=== PATIENT | male | born 1955 | race Two or more races ===

== ENCOUNTER 2018-12-11 01:01 | Emergency (ER) | payer OTHER ==
[~2018-12-11] VITALS: Ht 177.8 cm; Wt 86.2 kg
--- NOTE | 2018-12-11 01:05 | ED.ADGEN ---
Past History Past Medical History: Hypertension Adult General Chief Complaint Chief Complaint ".. I have this noise in my Rt. ear.. and when it gets bad.. I get dizzy... I took a pill for it once..." HPI HPI Patient is a 63 year old male [place] who presents with hx with ear tinnitus and dizzy x 2 months. Pt. currently in [employer] course at [employer]. Pt. patient's has fullness in right ear. Has history of sounds of wrinkled paper in right ear. Patient does remark that movement of head exacerbate symptoms. Symptoms are not worse with eyes closed. Was seen at the [facility] today and started on allergy meds. Patient does have a history of hypertension. Hx. of prior episodes of this presentation which was treated with a nausea med. Patient does not smoke. No history of TIAs or CVAs. No history of circulation problems. Does have history of mild arthritis. No history of trauma. No history immunosuppression. Normally lives in [place]. Review of Systems Review of Systems Constitutional: Denies fever or chills [] Eyes: Denies change in visual acuity, redness, or eye pain [] HENT: Denies nasal congestion or sore throat []complaints of tinnitus Rt. ear. Respiratory: Denies cough or shortness of breath [] Cardiovascular: No additional information not addressed in HPI [] GI: Denies abdominal pain, nausea, vomiting, bloody stools or diarrhea [] : Denies dysuria or hematuria [] Musculoskeletal: Denies back pain or joint pain [] Integument: Denies rash or skin lesions [] Neurologic: Denies headache, focal weakness or sensory changes [] Endocrine: Denies polyuria or polydipsia [] All other systems were reviewed and found to be within normal limits, except as documented in this note. Family History Family History Non-contributory Current Medications Current Medications Current Medications Medications (Trade) Dose Ordered Sig/Alberto Start Time Stop Time Status Last Admin Dose Admin Meclizine HCl (Antivert) 25 mg 1X STAT 12/11/18 01:30 12/11/18 01:47 DC 12/11/18 01:52 25 MG Prednisone (Prednisone) 60 mg 1X ONCE 12/11/18 01:30 12/11/18 01:47 DC 12/11/18 01:52 60 MG Allergies Allergies Allergies Coded Allergies Type Severity Reaction Last Updated Verified No Known Drug Allergies 4/24/19 No Physical Exam Physical Exam Constitutional:no acute distress, non-toxic appearance. [] HENT: Normocephalic, atraumatic, bilateral external ears normal, oropharynx moist, no oral exudates, nose normal. [ Eyes: PERRLA, EOMI, conjunctiva normal, no discharge. [] Neck: Normal range of motion, no tenderness, supple, no stridor. [] No Bruit. Cardiovascular:Heart rate regular rhythm, no murmur [] Lungs & Thorax: Bilateral breath sounds clear to auscultation [] Abdomen: Bowel sounds normal, soft, no tenderness, no masses, no pulsatile masses. [] Skin: Warm, dry, no erythema, no rash. [] Back: No tenderness, no CVA tenderness. [] Extremities: No tenderness, no cyanosis, no clubbing, ROM intact, no edema. [] Mild arthritic changes. Neurologic: Alert and oriented X 3, normal motor function, normal sensory function, no focal deficits noted. []DTR + 2 brachial and patella. No drift. Business Architect equal. AC> BC. BC lateralizes to Rt. ear. No terminal nystagmus. Pt. ambulatory without problems. Psychologic: Affect anxious, judgement normal, mood normal. [] Current Patient Data Vital Signs Vital Signs Date Time Temp Pulse Resp B/P (MAP) Pulse Ox O2 Delivery O2 Flow Rate FiO2 12/11/18 02:00 79 18 146/99 (115) 99 Room Air 12/11/18 01:05 98.3 EKG EKG [] Radiology/Procedures Radiology/Procedures [] Course & Med Decision Making Course & Med Decision Making Pertinent Labs and Imaging studies reviewed. (See chart for details) If no improvement must see ENT. Trial of meclizine 25 mg up 4 times a day. We will give a course of prednisone 50 mg day for 5 days. Return if any concerns. Must follow-up. Discussed risks of alternative diagnosis and need for followup. [] Final Impression Final Impression 1. Ear Rt. Tinnitus 2 .Hx HTN 3. Hx. Arthritis Aurea Disclaimer Aurea Disclaimer This electronic medical record was generated, in whole or in part, using a voice recognition dictation system. Discharge Summary Visit Information Final Diagnosis Problems Medical Problems: (1) Tinnitus of right ear Status: Acute Brief Hospital Course Allergies Allergies Coded Allergies Type Severity Reaction Last Updated Verified No Known Drug Allergies 12/11/18 No Vital Signs Vital Signs Date Time Temp Pulse Resp B/P (MAP) Pulse Ox O2 Delivery O2 Flow Rate FiO2 12/11/18 02:00 79 18 146/99 (115) 99 Room Air 12/11/18 01:05 98.3 Brief Hospital Course Mr. Scott is a 63 old male who presented with tinnitus Rt. ear. Discharge Information Condition at Discharge: Stable Disposition/Orders: D/C to Home Dischare Medications Current Medications Meclizine HCl (Antivert) 25 mg 1X STAT PO Last administered on 12/11/18at 01:52; Admin Dose 25 MG; Start 12/11/18 at 01:30; Stop 12/11/18 at 01:47; Status DC Prednisone (Prednisone) 60 mg 1X ONCE PO Last administered on 12/11/18at 01:52; Admin Dose 60 MG; Start 12/11/18 at 01:30; Stop 12/11/18 at 01:47; Status DC Active Scripts Active Prednisone 50 Mg Tablet 50 Mg PO DAILY 5 Days Meclizine Hcl 25 Mg Tablet 25 Mg PO QIDPRN PRN Dragon Disclaimer This chart was dictated in whole or in part using Voice Recognition software in a busy, high-work load, and often noisy Emergency Department environment. It may contain unintended and wholly unrecognized errors or omissions. DONNELL JUNIOR MD Dec 11, 2018 01:04
[2018-12-11] MEDS ORDERED: predniSONE 20 MG TABLET PO ONE (01:30)
[2018-12-11] MEDS ORDERED: MECLIZINE 12.5 MG TABLET. PO STA (01:30)
[2018-12-11] MEDS ORDERED: MECL25TA3 PO (01:34)
[2018-12-11] MEDS ORDERED: PRED50TA PO (01:42)
[2018-12-11 02:00] VITALS: BP 146/99
== END 2018-12-11 02:00 | disposition home or self-care (01) ==
LOC: ER 01:01
DX: H93.11 Tinnitus, right ear (principal); R42 Dizziness and giddiness; I10 Essential (primary) hypertension; M19.90 Unspecified osteoarthritis, unspecified site
CPT/HCPCS: 99283; J7512; J8597

== ENCOUNTER 2018-12-18 11:06 | Emergency (ER) | payer OTHER ==
[~2018-12-18] VITALS: Ht 177.8 cm; Wt 100.0 kg
[~2018-12-18 11:06] MED LIST: MECL25TA3 PO; PRED50TA PO
--- NOTE | 2018-12-18 11:27 | PHYS DOC ---
Past History Past Medical History: GERD, Hypertension Past Surgical History: Tonsillectomy Alcohol Use: None Drug Use: None Adult General Chief Complaint Chief Complaint: GI PROBLEM HPI HPI Patient is a 63-year-old male who presents with complaint of a burning sensation in his upper epigastric/lower chest region just behind the xiphoid process. The patient states that symptoms began a couple of days ago after being on prednisone for 5 days. Patient was treated with prednisone for complaint of right ear pain. Patient states that the ear pain has improved some but now he is hearing crackling from his right ear. He states that he was instructed to follow-up with an ENT specialist which she is still waiting to have appointment with. He denies any nausea or vomiting. Patient does indicate that he has a history of reflux and states that he takes Prilosec for that. He denies any shortness of breath. Review of Systems Review of Systems Constitutional: Denies fever or chills [] Respiratory: Denies cough or shortness of breath [] Cardiovascular: No additional information not addressed in HPI [] GI: Positive epigastric burning without nausea, vomiting, bloody stools or diarrhea [] Neurologic: Denies headache, focal weakness or sensory changes [] All other systems were reviewed and found to be within normal limits, except as documented in this note. Allergies Allergies Allergies Coded Allergies Type Severity Reaction Last Updated Verified No Known Drug Allergies 12/11/18 No Physical Exam Physical Exam Constitutional: Well developed, well nourished, no acute distress, non-toxic appearance. [] HENT: Normocephalic, atraumatic, bilateral external ears normal, oropharynx moist, no oral exudates, nose normal. [] Eyes: PERRLA, EOMI, conjunctiva normal, no discharge. [] Neck: Normal range of motion, no tenderness, supple, no stridor. [] Cardiovascular:Heart rate regular rhythm, no murmur [] Lungs & Thorax: Bilateral breath sounds clear to auscultation [] Abdomen: Bowel sounds normal, soft, no tenderness. [] Skin: Warm, dry, no erythema, no rash. [] Extremities: No tenderness, no cyanosis, no clubbing, ROM intact, no edema. [] Neurologic: Alert and oriented X 3, no focal deficits noted. [] Current Patient Data Vital Signs Vital Signs Date Time Temp Pulse Resp B/P (MAP) Pulse Ox O2 Delivery O2 Flow Rate FiO2 12/18/18 11:16 98.2 90 18 99 Room Air EKG EKG [] Radiology/Procedures Radiology/Procedures [] Course & Med Decision Making Course & Med Decision Making Pertinent Labs and Imaging studies reviewed. (See chart for details) Patient given GI cocktail and reports near complete relief of burning in chest and upper abdomen. Dragon Disclaimer Dragon Disclaimer This electronic medical record was generated, in whole or in part, using a voice recognition dictation system. Departure Departure: Impression: Primary Impression: Gastroesophageal reflux Additional Impression: Eustachian tube dysfunction Disposition: HOME, SELF-CARE Condition: STABLE Referrals: PCP,NO (PCP) Patient Instructions: Gastroesophageal Reflux Disease, Adult Scripts Ranitidine Hcl (ZANTAC) 150 Mg Tablet 1 TAB PO BID PRN for reflux, #30 TAB Prov: THOM PARSONS Jr. DO 12/18/18 Triamcinolone Acetonide (NASACORT) 10.8 Ml [place] 1 SPR NS BID for congestion, #10.8 ML Prov: THOM PARSONS Jr. DO 12/18/18 Problem Qualifiers Primary Impression: Gastroesophageal reflux Esophagitis presence: esophagitis presence not specified Qualified Codes: K21.9 - Gastro-esophageal reflux disease without esophagitis Additional Impression: Eustachian tube dysfunction Laterality: right Qualified Codes: H69.81 - Other specified disorders of eustachian tube, right ear THOM PARSONS Jr. DO December 18, 2018 11:27
[2018-12-18] MEDS: LIDO:MAALOX 1:1 20 ML SINGLE DOSE. PO ONE (11:35)
[2018-12-18] MEDS: SCOPOLAMINE 1.5MG PATCH. TD ONE (11:44)
[2018-12-18] MEDS ORDERED: RANI150T21 PO (12:47)
[2018-12-18] MEDS ORDERED: TRIA10.8 NS (12:47)
[2018-12-18 12:59] VITALS: BP 135/73
== END 2018-12-18 12:58 | disposition home or self-care (01) ==
LOC: ER 11:06
DX: K21.9 Gastro-esophageal reflux disease without esophagitis (principal); H69.81 Other specified disorders of Eustachian tube, right ear; I10 Essential (primary) hypertension
CPT/HCPCS: 99283